=== PATIENT | male | born 1985 | race Caucasian/White ===

== ENCOUNTER → 2020-07-14 00:55 | Outpatient (CLI) | payer BC, SELFPAY ==
[2020-07-14 18:53] LABS: SARS-CoV-2 RNA PCR Negative
== END ==
PROVIDERS: Visit Provider Internal Medicine Gastroenterology
DX: Z01.812 Encounter for preprocedural laboratory examination (principal); Z20.822 Contact with and (suspected) exposure to COVID-19
CPT/HCPCS: C9803; U0003; U0005

== ENCOUNTER 2020-07-17 02:27 | Day surgery (SDC) | payer BC, SELFPAY ==
[2020-07-09 13:09] VITALS: BMI 39.8
--- NOTE | 2020-07-17 11:51 | WPDANESEPPF ---
Anes - Initial Pre Proc Eval Procedure: Operation Date: 07/17/20 13:00 Proposed Procedures p Esophagogastroduodenoscopy - Jude Sin MD Date/Time: 07/17/20 11:51 Surgeon: Jude Sin MD Pre Op Diagnosis: GERD, hiatal hernia Patient Data Age: 35 Gender: M Height: 5 ft 10 in Weight: 126 kg Allergies Allergy/AdvReac Type Severity Reaction Status Date / Time pollen extracts Allergy Unknown unk Verified 07/17/20 11:45 shellfish derived Allergy Unknown unk Verified 07/17/20 11:45 SHELLFISH Allergy Unknown HIVES, Uncoded 07/17/20 11:45 LIPS SWELLING Home Medications Medication Instructions Recorded Confirmed Type albuterol sulfate 90 mcg/actuation 1 puff INHALATION Q4H PRN 06/19/20 07/17/20 History aerosol inhaler bupropion HCl 150 mg 24 hr tablet, 150 mg PO QAM 06/19/20 07/17/20 History extended release fluticasone 250 mcg-salmeterol 50 1 inh INHALATION BID 06/19/20 07/17/20 History mcg/dose blistr powdr for inhalation montelukast 10 mg tablet 10 mg PO DAILY 06/19/20 07/17/20 History omeprazole 40 mg-sodium 1 cap PO DAILY 06/19/20 07/17/20 History bicarbonate 1.1 gram capsule sildenafil 100 mg PO DAILY PRN 07/09/20 07/17/20 History Patient hx anesthesia problems: none Family hx anesthesia problems: none PMFSH Past Medical History Medical History (Updated 06/26/20 @ 13:57 by SUNDEEP Wiseman) Anxiety Asthma Bloating Chest pain Dyspnea GERD (gastroesophageal reflux disease) Hemorrhoids Herpes Hyperlipemia Male erectile disorder Morbid obesity Myalgia Nonorganic sleep disorder, unspecified Obesity Rhinitis Sleep apnea Family History Family History Father Family history of lung cancer Mother Family history of malignant neoplasm of thyroid Social History Social History (Updated 06/26/20 @ 13:13 by Kamini Marie CMA) Smoking status: Former smoker Tobacco type: smokeless tobacco Smokeless tobacco user: chewing tobacco Alcohol intake: current Drinks per week: 1 Substance use: former Living arrangements: with family Gender identity (if verbalized by the patient): Male Anejacqui - Evmonique Final PreProcedure Day of Procedure 07/17/20 11:51 Patient weight: morbidly obese Heart: regular rate and rhythm Lungs: clear to auscultation Airway: Mallampati scale class III Neurological: alert and oriented Last oral intake: >/= 8 hours ASA classification: III Emergent: no Anesthetic plan: proceed Anesthesia type and monitoring: general GIVS and standard monitoring Informed Consent: The patient's anesthetic plan and its attendant risks and benefits were discussed with the patient/family/POA. Questions were solicited and answers provided to the satisfaction of the patient/family/POA.
[2020-07-17 11:55] VITALS: BP 139/83; PULSE 72; RESP 20; TEMP 36.6; O2SAT 98; BMI 40.1
[2020-07-17] MEDS: LACTATED RINGERS 1,000 ML 150 ML IV CONT (12:06)
--- NOTE | 2020-07-17 12:13 | PM.HPGS ---
History of Present Illness History of Present Illness Consent: Risks, benefits, and alternatives have been discussed and questions answered. Patient agrees to proceed with procedure. Chief complaint: GERD, hiatal hernia Narrative: Tino Blanco is a 35 year old male with refractory reflux symptoms including asthma and postprandial burning. He has had a 40 lb weight gain in the past year or so Review of Systems Review of Systems: All systems reviewed & are unremarkable except as noted in HPI and below PMFSH Past Medical History Medical History Anxiety Asthma Bloating Chest pain Dyspnea GERD (gastroesophageal reflux disease) Hemorrhoids Herpes Hyperlipemia Male erectile disorder Morbid obesity Myalgia Nonorganic sleep disorder, unspecified Obesity Rhinitis Sleep apnea Family History Family History Father Family history of lung cancer Mother Family history of malignant neoplasm of thyroid Social History Social History Smoking status: Former smoker Tobacco type: smokeless tobacco Smokeless tobacco user: chewing tobacco Alcohol intake: current Drinks per week: 1 Substance use: former Living arrangements: with family Gender identity (if verbalized by the patient): Male Meds Home Medications and Allergies Home Medications Medication Instructions Recorded Confirmed Type albuterol sulfate 90 mcg/actuation 1 puff INHALATION Q4H PRN 06/19/20 07/17/20 History aerosol inhaler bupropion HCl 150 mg 24 hr tablet, 150 mg PO QAM 06/19/20 07/17/20 History extended release fluticasone 250 mcg-salmeterol 50 1 inh INHALATION BID 06/19/20 07/17/20 History mcg/dose blistr powdr for inhalation montelukast 10 mg tablet 10 mg PO DAILY 06/19/20 07/17/20 History omeprazole 40 mg-sodium 1 cap PO DAILY 06/19/20 07/17/20 History bicarbonate 1.1 gram capsule sildenafil 100 mg PO DAILY PRN 07/09/20 07/17/20 History Allergies Allergy/AdvReac Type Severity Reaction Status Date / Time pollen extracts Allergy Unknown unk Verified 07/17/20 11:45 shellfish derived Allergy Unknown unk Verified 07/17/20 11:45 SHELLFISH Allergy Unknown HIVES, Uncoded 07/17/20 11:45 LIPS SWELLING Vital Signs Vital Signs - 24 hr 07/17/20 11:55 Temperature 36.6 C Pulse Rate 72 Respiratory Rate 20 Blood Pressure 139/83 Pulse Oximetry 98 Exam Const: General: alert Orientation/consciousness: patient oriented x3 Resp: Auscultation: clear to auscultation bilaterally Cardio: Rhythm: regular rhythm GI: GI Palp: Yes Soft to palpation and No Tenderness to palpation present (GI) Neuro: General: patient oriented x3 Assessment and Plan Assessment and plan (1) GERD (gastroesophageal reflux disease): Code(s): K21.9 - Gastro-esophageal reflux disease without esophagitis Status: Acute Assessment and Plan: EGD with possible biopsy or dilatation or cautery.
[2020-07-17] MEDS: SIMETHICONE ORAL SUSPENSION 20 MG/0.3 ML 30 ML BOTTLE 0.6 ML IRRIGATION (12:38)
[2020-07-17 12:40] VITALS: BP 134/83; PULSE 88; RESP 24; O2SAT 98
[2020-07-17 12:50] VITALS: BP 130/87; PULSE 84; RESP 20; O2SAT 98
[2020-07-17 13:00] VITALS: BP 143/90; PULSE 82; RESP 20; O2SAT 98
== END 2020-07-17 13:15 | disposition home or self-care (01) ==
PROVIDERS: PCP Family Medicine; Visit Provider Internal Medicine Gastroenterology
PROC: 0DJ08ZZ Inspection of Upper Intestinal Tract, Via Natural or Artificial Opening Endoscopic (ICD-10-PCS; CPT 43235; principal; 2020-07-17 13:00)
DX: K21.9 Gastro-esophageal reflux disease without esophagitis (principal); K29.70 Gastritis, unspecified, without bleeding; K86.89 Other specified diseases of pancreas; J45.909 Unspecified asthma, uncomplicated; E78.5 Hyperlipidemia, unspecified; G47.30 Sleep apnea, unspecified; Z79.51 Long term (current) use of inhaled steroids; E66.01 Morbid (severe) obesity due to excess calories; Z68.41 Body mass index [BMI] 40.0-44.9, adult; F17.220 Nicotine dependence, chewing tobacco, uncomplicated
CPT/HCPCS: 43239; 87081; 88305; J2704; J7120